=== PATIENT | male | born 1970 | race American Indian/Alaskan Native ===

== ENCOUNTER 2018-10-02 19:05 | Emergency (ER) | payer OTHER ==
--- NOTE | 2018-10-02 19:18 | Event Note ---
ED Screening Note ED Screening Note: Pt states he went to urgent care for an injured big toe they did XR which he states was normal he states he pressure was too high,and was sent to ED for pressure no hx of HTN family hx of HTN has not seen a doctor in more than 10 years no CP no ALBERTS no dizziness no symptoms non smoker +ETOH use occasionally no drug use blood pressure in triage in 215/144- will need medication and serial bp measurements This initial assessment/diagnostic orders/clinical plan/treatment(s) is/are subject to change based on patients health status, clinical progression and re- assessment by fellow clinical providers in the ED. Further treatment and workup at subsequent clinical providers discretion. Patient/guardian urged not to elope from the ED as their condition may be serious if not clinically assessed and managed. Initial orders include: labs, UA
[2018-10-02 20:03] LABS: Basophils # (Auto) 0.1 K/mm3 (0.0-0.1); Basophils % (Auto) 1.3 % (0.0-1.8); Eosinophils # (Auto) 0.5 K/mm3 (0.0-0.4); Eosinophils % (Auto) 7.3 % (0.0-4.3); Hematocrit 46.2 % (35.5-45.6); Hemoglobin 16.2 gm/dl (11.8-15.2); Lymphocytes # (Auto) 1.6 K/mm3 (1.2-5.4); Mean Corpuscular HGB Conc 35 % (32-34); Mean Corpuscular Volume 85 fl (84-94); Monocytes # (Auto) 0.8 K/mm3 (0.0-0.8); Monocytes % (Auto) 10.5 % (0.0-7.3); Platelet Count 241 K/mm3 (140-440); Red Blood Count 5.42 M/mm3 (3.65-5.03); Red Cell Distribution Width 14.6 % (13.2-15.2)
--- NOTE | 2018-10-02 20:25 | Emergency Department Report ---
ED General Adult HPI - General Chief complaint: High BP Stated complaint: ELEVATED BLOOD PRESSURE Time Seen by Provider: 10/02/18 19:14 Source: patient Mode of arrival: Ambulatory Limitations: No Limitations - History of Present Illness Initial comments: 48-year-old male presents to the ED for elevated blood pressure. Patient seen in urgent care for injury to his foot, and was told he was hypertensive and needed to be seen in the ER. Patient states he has not seen a physician in quite some time, and has therefore never been diagnosed with hypertension. Patient denies headache, dizziness, nausea, vomiting, chest pain, shortness of breath. PCP: none -: unknown Severity scale (0 -10): 2 Improves with: none Worsens with: none Associated Symptoms: denies: confusion, chest pain, headaches, nausea/vomiting, shortness of breath, syncope - Related Data Previous Rx's Medication Instructions Recorded Last Taken Type Amlodipine Besylate [Norvasc] 5 mg PO QDAY #30 tablet 10/02/18 Unknown Rx Lisinopril [Zestril TAB] 20 mg PO QDAY #30 tablet 10/02/18 Unknown Rx Allergies Allergy/AdvReac Type Severity Reaction Status Date / Time Penicillins Allergy Unknown Verified 10/02/18 19:15 ED Review of Systems ROS: Stated complaint: ELEVATED BLOOD PRESSURE Other details as noted in HPI Comment: All other systems reviewed and negative Respiratory: denies: shortness of breath Cardiovascular: denies: chest pain Gastrointestinal: denies: nausea, vomiting Genitourinary: frequency Musculoskeletal: other (reports foot injury) Neurological: denies: headache, weakness, numbness, paresthesias ED Past Medical Hx - Past Medical History Previous Medical History?: No - Surgical History Past Surgical History?: No - Social History Smoking Status: Never Smoker Substance Use Type: Alcohol - Medications Home Medications: Home Medications Medication Instructions Recorded Confirmed Last Taken Type Amlodipine Besylate [Norvasc] 5 mg PO QDAY #30 tablet 10/02/18 Unknown Rx Lisinopril [Zestril TAB] 20 mg PO QDAY #30 tablet 10/02/18 Unknown Rx ED Physical Exam - General Limitations: No Limitations General appearance: alert, in no apparent distress - Head Head exam: Present: atraumatic, normocephalic - Eye Eye exam: Present: PERRL, EOMI - ENT ENT exam: Present: mucous membranes moist - Neck Neck exam: Present: normal inspection - Respiratory Respiratory exam: Present: normal lung sounds bilaterally. Absent: respiratory distress - Cardiovascular Cardiovascular Exam: Present: regular rate, normal rhythm - GI/Abdominal GI/Abdominal exam: Absent: distended - Neurological Exam Neurological exam: Present: alert, oriented X3, CN II-XII intact. Absent: motor sensory deficit - Psychiatric Psychiatric exam: Present: normal affect, normal mood - Skin Skin exam: Present: warm, dry, intact, normal color. Absent: rash ED Course Vital Signs 10/02/18 10/02/18 10/02/18 19:12 19:15 20:21 Temperature 98.0 F 98 F Pulse Rate 86 87 74 Respiratory 18 18 14 Rate Blood Pressure 215/144 215/144 Blood Pressure 189/131 [Left] O2 Sat by Pulse 99 100 99 Oximetry 10/02/18 10/02/18 20:46 21:00 Temperature Pulse Rate 75 73 Respiratory 16 Rate Blood Pressure 189/131 Blood Pressure 180/111 [Left] O2 Sat by Pulse 100 Oximetry ED Medical Decision Making - Lab Data Result diagrams: 10/02/18 19:26 10/02/18 19:26 - EKG Data -: EKG Interpreted by Fl EKG shows normal: sinus rhythm, axis, intervals, QRS complexes, ST-T waves Rate: normal - EKG Data Interpretation: other (IVCD; inferolateral T wave inversions) - Medical Decision Making 48 yo M with elevated BP. Pt asymptomatic. Meds given here in ED. BP somewhat improved. Informed pt of abnormal renal function and abnormal EKG. Pt advised to follow-up. Prescriptions given also. - Differential Diagnosis asymptomatic HTN Critical care attestation.: If time is entered above; I have spent that time in minutes in the direct care of this critically ill patient, excluding procedure time. ED Disposition Clinical Impression: Hypertension, Chronic kidney disease Disposition: - TO HOME OR SELFCARE Is pt being admited?: No Condition: Stable Instructions: Heart Healthy Diet (ED), Hypertension (ED) Prescriptions: Amlodipine Besylate [Norvasc] 5 mg PO QDAY #30 tablet Lisinopril [Zestril TAB] 20 mg PO QDAY #30 tablet Referrals: [facility] MD QUAN [Primary Care Provider] - 3-5 Days RAYSHAWN BUENROSTRO MD [Staff Physician] - 3-5 Days CARBUCCIA,TAMAR, MD [Staff Physician] - 3-5 Days Time of Disposition: 22:05
[2018-10-02 20:29] LABS: Albumin 4.3 g/dL (3.9-5); Calcium 9.5 mg/dL (8.4-10.2)
[2018-10-02] MEDS ORDERED: ZESTRIL PO ONE (20:34)
[2018-10-02] MEDS ORDERED: NORVASC PO ONE (20:35)
[2018-10-02 21:41] LABS: Bilirubin,Urine NEG (Negative); Blood,Urine NEG (Negative); Color,Urine Straw (Yellow); Urobilinogen,Urine < 2.0 mg/dL (<2.0); WBC,Urine < 1.0 /HPF (0.0-6.0)
[2018-10-02 23:30] VITALS: BP 178/110
== END 2018-10-02 23:32 | disposition home or self-care (01) ==
LOC: ED 19:05
DX: I12.9 Hypertensive chronic kidney disease with stage 1 through stage 4 chronic kidney disease, or unspecified chronic kidney disease (principal); N18.9 Chronic kidney disease, unspecified
CPT/HCPCS: 36415; 80053; 81001; 85025; 93005; 93010

== ENCOUNTER 2018-11-02 20:44 | Emergency (ER) | payer SELFPAY ==
--- NOTE | 2018-11-02 21:03 | Event Note ---
ED Screening Note Date of service: 11/02/18 Time: 20:59 ED Screening Note: 48 y/o male comes in for not feeling well feels that his legs are swelling and elevated blood pressure. Has 3+ pitted edema This initial assessment/diagnostic orders/clinical plan/treatment(s) is/are subject to change based on patients health status, clinical progression and re- assessment by fellow clinical providers in the ED. Further treatment and workup at subsequent clinical providers discretion. Patient/guardian urged not to elope from the ED as their condition may be serious if not clinically assessed and managed. Initial orders include:
[2018-11-02] MEDS ORDERED: CATAPRES PO ONE (21:40)
--- NOTE | 2018-11-02 21:43 | XRay Report ---
CHEST 2 VIEWS INDICATION / CLINICAL INFORMATION: cough. Elevated blood pressure. COMPARISON: None available. FINDINGS: SUPPORT DEVICES: None. HEART / MEDIASTINUM: Upper normal size for AP portable technique. LUNGS / PLEURA: No significant pulmonary or pleural abnormality. No pneumothorax. ADDITIONAL FINDINGS: Mild to moderate mid thoracic spondylosis. IMPRESSION: 1. No acute cardiopulmonary findings. Signer Name: Kurt Rose MD Signed: 11/02/2018 9:39 PM Workstation Name: [id number]
--- NOTE | 2018-11-02 22:02 | Emergency Department Report ---
HPI - General Chief Complaint: High BP Time Seen by Provider: 11/02/18 21:39 - HPI HPI: Room 8 The patient is a 48-year-old male presenting with a chief complaint of hypertension. Patient states he ran out of his medication yesterday and sent for elevated blood pressure. Patient denies headache chest pain shortness of breath nausea vomiting. Patient denies any complaints except pain to the left great toe for 1 month. The patient states he went to an urgent care facility and had an x-ray performed which was negative. Patient denies history of gout Location: [See above] Duration: [See above] Quality: [See above] Severity: [See above] Modifying factors: [see above] Context: [see above] Mode of transportation: [not driving] ED Past Medical Hx - Past Medical History Previous Medical History?: Yes Hx Hypertension: Yes - Surgical History Past Surgical History?: No - Family History Family history: no significant - Social History Smoking Status: Never Smoker Substance Use Type: None (denies illicit drug use), Alcohol (occasional) - Medications Home Medications: Home Medications Medication Instructions Recorded Confirmed Last Taken Type Lisinopril [Zestril TAB] 20 mg PO QDAY #30 tablet 10/02/18 Unknown Rx Amlodipine Besylate [Norvasc] 5 mg PO QDAY #90 tablet 11/02/18 Unknown Rx ED Review of Systems ROS: Stated complaint: HIGH BLOOD PRESSURE Other details as noted in HPI Constitutional: no symptoms reported Eyes: denies: eye pain ENT: denies: throat pain Respiratory: no symptoms reported Cardiovascular: denies: chest pain Endocrine: no symptoms reported Gastrointestinal: denies: abdominal pain Genitourinary: denies: dysuria Musculoskeletal: denies: back pain Neurological: denies: headache Physical Exam - Physical Exam Vital Signs: Vital Signs 11/02/18 20:58 Temperature 98.3 F Pulse Rate 72 Respiratory 18 Rate Blood Pressure 187/103 O2 Sat by Pulse 100 Oximetry Vital Signs 11/02/18 11/02/18 11/02/18 20:58 21:45 22:00 Temperature 98.3 F Pulse Rate 72 71 Respiratory 18 18 18 Rate Blood Pressure 187/103 184/118 Blood Pressure 184/118 [Left] O2 Sat by Pulse 100 100 100 Oximetry 11/02/18 23:10 Temperature Pulse Rate 65 Respiratory 18 Rate Blood Pressure Blood Pressure 155/101 [Left] O2 Sat by Pulse 100 Oximetry Physical Exam: GENERAL: The patient is well-developed well-nourished male lying on stretcher not appearing to be in acute distress. [] HEENT: Normocephalic. Atraumatic. Extraocular motions are intact. Patient has moist mucous membranes. NECK: Supple. Trachea midline CHEST/LUNGS: Clear to auscultation. There is no respiratory distress noted. HEART/CARDIOVASCULAR: Regular. There is no tachycardia. There is no gallop rub or murmur. ABDOMEN: Abdomen is soft, nontender. Patient has normal bowel sounds. There is no abdominal distention. SKIN: There is no rash. There is no edema. There is no diaphoresis. NEURO: The patient is awake, alert, and oriented. The patient is cooperative. The patient has no focal neurologic deficits. The patient has normal speech MUSCULOSKELETAL: There is no evidence of acute injury. ED Course Vital Signs 11/02/18 20:58 Temperature 98.3 F Pulse Rate 72 Respiratory 18 Rate Blood Pressure 187/103 O2 Sat by Pulse 100 Oximetry ED Medical Decision Making - Radiology Data Radiology results: report reviewed (chest x-ray), image reviewed (chest x-ray) interpreted by me: Chest x-ray-no focal infiltrates, no pneumothorax [facility] [address] [place] [address] XRay Report Signed Patient: NIKKI ROUSE MR#: [id number] : 1970 Acct:[id number] Age/Sex: 48 / M ADM Date: 11/02/18 Loc: ED Attending Dr: Ordering Physician: MISHA KEYES Date of Service: 11/02/18 Procedure(s): XR chest routine 2V Accession Number(s): [id number] cc: MISHA KEYES Fluoro Time In Minutes: CHEST 2 VIEWS INDICATION / CLINICAL INFORMATION: cough. Elevated blood pressure. COMPARISON: None available. FINDINGS: SUPPORT DEVICES: None. HEART / MEDIASTINUM: Upper normal size for AP portable technique. LUNGS / PLEURA: No significant pulmonary or pleural abnormality. No pneumothorax. ADDITIONAL FINDINGS: Mild to moderate mid thoracic spondylosis. IMPRESSION: 1. No acute cardiopulmonary findings. Signer Name: Kurt Rose MD Signed: 11/02/2018 9:39 PM Workstation Name: [email or web address] Transcribed By: DT Dictated By: Xander Rose MD Electronically Authenticated By: Xander Rose MD Signed Date/Time: 11/02/182138 DD/ 37 TD/TT: - Differential Diagnosis hypertension, gout, Critical care attestation.: If time is entered above; I have spent that time in minutes in the direct care of this critically ill patient, excluding procedure time. ED Disposition Clinical Impression: Hypertension Disposition: - TO HOME OR SELFCARE Is pt being admited?: No Does the pt Need Aspirin: No Condition: Stable Instructions: Hypertension (ED) Additional Instructions: Return to the emergency department immediately should you develop worsening symptoms, fever, inability to tolerate food or liquid or any other concerns. Prescriptions: Amlodipine Besylate [Norvasc] 5 mg PO QDAY #90 tablet Referrals: [facility] [Outside] - 3-5 Days Time of Disposition: 23:15
[2018-11-02 23:16] VITALS: BP 155/101
== END 2018-11-02 23:35 | disposition home or self-care (01) ==
LOC: ED 20:44
DX: I10 Essential (primary) hypertension (principal)
CPT/HCPCS: 71046